=== PATIENT | female | born 1940 | race Caucasian/White ===

== ENCOUNTER 2017-07-29 03:22 | Emergency (ER) | payer OTHER, MEDICARE ==
[~2017-07-29] VITALS: Ht 144.8 cm; Wt 68.4 kg
[~2017-07-29 03:22] MED LIST: BENTYL20 MG PO; BUSPAR10 MG PO; CALCIUM 250+D1 EACH PO; CALCIUM600 MG PO; EFFEXOR XR150 MG PO; ESCITALOPRAM OX20 MG PO; FISH OIL 1,0001 EAC7 PO; METOPROLOL SUCC25 MG PO; METOPROLOL TART50 MG PO; PANTOPRAZOLE SO40 MG PO; PRAVASTATIN SOD10 MG PO; Protonix PO; VENLAFAXINE H37.5 M3 PO; XANAX0.25 MG PO; ZETIA10 MG PO; ZOFRAN ODT4 MG PO
[2017-07-29 03:56] LABS: HEMATOCRIT 39.9 % (36.0-46.0); HEMOGLOBIN 13.2 G/DL (11.9-15.5); MCH 30.6 PG (29.0-34.0); MCHC 33.1 G/DL (30.0-36.0); MCV 92.6 FL (83-99); PLATELET COUNT 261 K/uL (156-360); RBC DIS.WIDTH-CV 13.4 % (11.8-14.6); RBC DIS.WIDTH-SD 46.3 % (39-53); RED BLOOD COUNT 4.31 M/uL (3.80-5.20); WHITE BLOOD COUNT 11.6 K/uL (4.1-10.2)
[2017-07-29 04:04] LABS: ALBUMIN 4.2 g/dL (3.2-4.8)
[2017-07-29 04:05] LABS: CHLORIDE 106 mEq/L (99-109); POTASSIUM 3.9 mEq/L (3.7-5.4); SODIUM 143 mEq/L (136-147)
[2017-07-29 04:07] LABS: GLUCOSE 129 mg/dL (70-99); TOTAL PROTEIN 6.6 g/dL (6.4-8.3)
[2017-07-29 04:09] LABS: TOTAL BILIRUBIN 0.4 mg/dL (0.0-1.0)
[2017-07-29 04:10] LABS: ALKALINE PHOSPHATASE 67 IU/L (3-129)
[2017-07-29 04:11] LABS: CREATININE 0.9 mg/dL (0.6-1.3); GFR ESTIMATE (CALCULATED) > 59 mL/min/
[2017-07-29 04:12] LABS: AST (GOT) 17 IU/L (2-34); UREA NITROGEN (BUN) 26 mg/dL (9-23)
[2017-07-29 04:13] LABS: ALT (GPT) 12 IU/L (3-49)
[2017-07-29 04:14] LABS: LIPASE 27 U/L (1.0-51.0)
[2017-07-29 06:02] LABS: APPEARANCE CLEAR ((CLEAR)); COLOR YELLOW ((YELLOW))
[2017-07-29 06:03] LABS: LEUKOCYTES NEGATIVE; NITRITE NEGATIVE; PH, URINE 5 (5-8); SPECIFIC GRAVITY 1.025 (1.000-1.030)
[2017-07-29 06:04] LABS: BILIRUBIN NEGATIVE; BLOOD NEGATIVE; GLUCOSE (STRIP) NEGATIVE; KETONES NEGATIVE; PROTEIN (STRIP) NEGATIVE; UCUL ADDED? NO; UROBILINOGEN 0.2 MG/DL (0.2-1.0)
[2017-07-29] MEDS ORDERED: NORCO 5/3251 TABLET PO (06:15)
[2017-07-29] MEDS ORDERED: ZOFRAN4 MG PO (06:15)
[2017-07-29] MEDS ORDERED: FLOMAX0.4 MG PO (06:15)
[2017-07-29 07:05] VITALS: BP 105/55
== END 2017-07-29 07:19 | disposition home or self-care (01) ==
LOC: EME 03:22
DX: N13.1 Hydronephrosis with ureteral stricture, not elsewhere classified (principal); Z87.442 Personal history of urinary calculi; I10 Essential (primary) hypertension; K21.9 Gastro-esophageal reflux disease without esophagitis; F41.9 Anxiety disorder, unspecified; F32.9 Major depressive disorder, single episode, unspecified; Z90.49 Acquired absence of other specified parts of digestive tract
CPT/HCPCS: 74177; 80053; 81003; 83605; 83690; 85027; 87040; 99281; 99285; J1885; J2405; J3010; J7030